=== PATIENT | female | born 1980 | race Hispanic/Latino ===

== ENCOUNTER 2021-06-30 10:05 | Emergency (ER) | payer MEDICAID ==
[2021-06-30 10:46] VITALS: BP 109/61
--- NOTE | 2021-06-30 12:15 | Event Note ---
ED Screening Note ED Screening Note: lower abd pain discomfort for a few days +vaginal discharge two weeks +clear fishy odor no v/d +dysuria +sexual active yes Concern for STD PMHx depression, anxiety no allergies to meds LNMP: two weeks ago This initial assessment/diagnostic orders/clinical plan/treatment(s) is/are subject to change based on patients health status, clinical progression and re- assessment by fellow clinical providers in the ED. Further treatment and workup at subsequent clinical providers discretion. Patient/guardian urged not to elope from the ED as their condition may be serious if not clinically assessed and managed. Initial orders include: ua, urine preg
[2021-06-30] MEDS ORDERED: ACETAMINOPHEN 325 MG TAB PO ONE (13:44)
[2021-06-30] MEDS ORDERED: LIDOCAINE-MPF (1%) 10 MG/1 ML VIAL 5 ML INFILTRATI ONE (13:44)
--- NOTE | 2021-06-30 14:01 | Emergency Department Report ---
ED Female HPI - General Chief complaint: Abdominal Pain Stated complaint: PELVIC PAIN Time Seen by Provider: 06/30/21 12:14 Source: patient Mode of arrival: Ambulatory Limitations: No Limitations - History of Present Illness Initial comments: 40-year-old female presents to the ER today with complaints of pelvic pain. Patient states that for the past 2 weeks she has been having this abnormal vaginal discharge which she describes as a yellow-green color with the vaginal odor and today she started having pain in mainly her right pelvic area. She re ports associated urinary frequency, and nausea but denies any other symptoms. She states that she has had the same sexual partner for the past 1 year, and has been having unprotected sexual intercourse. She states that she did have PID 1 year ago, his symptoms today feel somewhat similar. She is status post tubal ligation and status post cholecystectomy MD Complaint: pelvic pain, possible STD -: days(s) (2-3) - Related Data Previous Rx's Medication Instructions Recorded Last Taken Type Doxycycline Hyclate [Doxycycline 100 mg PO Q12HR #14 tab 06/30/21 Unknown Rx Hyclate TAB] metroNIDAZOLE [Flagyl] 500 mg PO Q12HR #14 tab 06/30/21 Unknown Rx Allergies Allergy/AdvReac Type Severity Reaction Status Date / Time No Known Allergies Allergy Unverified 06/30/21 10:41 ED Review of Systems ROS: Stated complaint: PELVIC PAIN Other details as noted in HPI Comment: All other systems reviewed and negative Constitutional: denies: chills, fever Eyes: denies: eye pain, eye discharge, vision change ENT: denies: ear pain, throat pain, dental pain, hearing loss, epistaxis, congestion Respiratory: denies: cough, shortness of breath, wheezing Gastrointestinal: abdominal pain. denies: nausea, vomiting, diarrhea, constipation, hematemesis, melena, hematochezia Genitourinary: denies: urgency, dysuria, frequency, hematuria, discharge, abnormal menses, dyspareunia Musculoskeletal: denies: back pain, joint swelling, arthralgia Skin: denies: rash, lesions, change in color, change in hair/nails, pruritus Neurological: denies: headache, weakness, numbness, paresthesias, confusion, abnormal gait, vertigo Psychiatric: denies: anxiety, depression, auditory hallucinations, visual hallucinations, homicidal thoughts, suicidal thoughts Hematological/Lymphatic: denies: easy bleeding, easy bruising, swollen glands ED Past Medical Hx - Past Medical History Hx Psychiatric Treatment: Yes (AXNIETY /DEPRESSION) Additional medical history: PID - Surgical History Hx Cholecystectomy: Yes Additional Surgical History: TUBES TIED - Medications Home Medications: Home Medications Medication Instructions Recorded Confirmed Last Taken Type Doxycycline Hyclate [Doxycycline 100 mg PO Q12HR #14 tab 06/30/21 Unknown Rx Hyclate TAB] metroNIDAZOLE [Flagyl] 500 mg PO Q12HR #14 tab 06/30/21 Unknown Rx ED Physical Exam - General Limitations: No Limitations General appearance: alert, in no apparent distress - Head Head exam: Present: atraumatic, normocephalic, normal inspection - Eye Eye exam: Present: normal appearance, PERRL, EOMI Pupils: Present: normal accommodation - Neck Neck exam: Present: normal inspection, full ROM - Respiratory Respiratory exam: Present: normal lung sounds bilaterally. Absent: respiratory distress, wheezes, rales, rhonchi - Cardiovascular Cardiovascular Exam: Present: regular rate, normal rhythm, normal heart sounds - GI/Abdominal GI/Abdominal exam: Present: soft. Absent: distended, tenderness, guarding, rebound, rigid - External exam: Present: other (Engraver Block present; erythematous maculopapular well-demarcated rash rash noted around the external vagina and in bilateral groin area concerning for candidiasis). Absent: swelling, lesions, lacerations, ecchymosis Speculum exam: Present: vaginal discharge (Small amount of mucousy clear white discharge). Absent: cervical discharge, vaginal bleeding, tissue, laceration Bi-manual exam: Present: cervical motion tendernes (Mild), adnexal tenderness (Mild right). Absent: adnexal mass, uterine enlargement, uterine tenderness - Back Exam Back exam: Present: normal inspection - Neurological Exam Neurological exam: Present: alert, oriented X3, CN II-XII intact, normal gait - Psychiatric Psychiatric exam: Present: normal affect, normal mood - Skin Skin exam: Present: intact ED Course Vital Signs 06/30/21 10:43 Temperature 98.4 F Pulse Rate 91 H Respiratory 20 Rate Blood Pressure 109/61 [Right] O2 Sat by Pulse 100 Oximetry ED Medical Decision Making - Medical Decision Making UA negative UTI, HCG negative, wet prep + Trichomonas She was given IM rocephin for possible gonorrhea. Discussed lab results with patient. She is currently resting comfortable and not in any distress. She is not toxic or ill appearing. She is mentally stable and neurologically intact with normal gait. She has soft non tender abd and pelvic exam shows mild right adnexal ttp with mild CMT but otherwise unremarkable. Her history, exam, diagnostic testing and current condition do not suggest acute appendicitis, acute cholecystitis, severe diverticulitis, severe PID, ovarian torsion, or tubo-ovarian abscess, sepsis or other significant pathology to warrant further testing, continued ED treatment, admission or surgical evaluation at this point. Discussed all lab results with patient. She will be discharged home with a prescription for doxycycline to cover for possible chlamydia and Flagyl to treat her trichomonas. Informed her that her partner should also get tested and treated. Patient expressed understanding for instructions and agree with plan. Patient was stable at time of discharge. Critical care attestation.: If time is entered above; I have spent that time in minutes in the direct care of this critically ill patient, excluding procedure time. ED Disposition Clinical Impression: Trichomonas vaginitis, Pelvic pain Disposition: HOME / SELF CARE / HOMELESS Is pt being admited?: No Does the pt Need Aspirin: No Condition: Stable Instructions: Pelvic Pain, Female, [id number], Trichomoniasis, Abdominal Pain (ED) Additional Instructions: I recommend that you take the Flagyl and the doxycycline as prescribed until completion. It is important that you avoid sexual intercourse for about 7 days. Your partner should also get tested and treated. Do not drink any alcohol as taking the antibiotics. Take both antibiotics with food as they can cause some stomach upset. Take the Tylenol and ibuprofen as needed to help with any pain. Return to the ER if you symptoms worsens or changes in any way. Prescriptions: Doxycycline Hyclate [Doxycycline Hyclate TAB] 100 mg PO Q12HR #14 tab metroNIDAZOLE [Flagyl] 500 mg PO Q12HR #14 tab Referrals: PRIMARY CARE, [Primary Care Provider] - 3-5 Days Time of Disposition: 15:18
[2021-06-30 15:23] LABS: Bilirubin,Urine NEG (Negative); Blood,Urine NEG (Negative); Color,Urine Yellow (Yellow); Mucus,Urine FEW /HPF; Protein,Urine <15 mg/dL mg/dL (Negative); Urobilinogen,Urine < 2.0 mg/dL (<2.0)
[2021-06-30 15:24] LABS: HCG Qualitative,Urine Negative (Negative)
== END 2021-06-30 16:03 | disposition home or self-care (01) ==
LOC: ED 10:05
DX: A59.01 Trichomonal vulvovaginitis (principal); R10.9 Unspecified abdominal pain; F41.8 Other specified anxiety disorders; F32.9 Major depressive disorder, single episode, unspecified; N73.9 Female pelvic inflammatory disease, unspecified; Z98.890 Other specified postprocedural states
CPT/HCPCS: 81001; 81025; 87210; 87591; 96372; 99284; J0696

== ENCOUNTER 2021-07-05 09:33 | Emergency (ER) | payer MEDICAID ==
[2021-07-05 10:32] LABS: Bilirubin,Urine NEG (Negative); Blood,Urine NEG (Negative); Color,Urine Yellow (Yellow); Mucus,Urine 2+ /HPF; Protein,Urine <15 mg/dL mg/dL (Negative); Urobilinogen,Urine < 2.0 mg/dL (<2.0)
[2021-07-05 11:11] LABS: Basophils % (Auto) 0.3 % (0.0-1.8); Hematocrit 38.3 % (30.3-42.9); Hemoglobin 12.7 gm/dl (10.1-14.3); Lymphocytes # (Auto) 1.6 K/mm3 (1.2-5.4); Lymphocytes % (Auto) 13.2 % (13.4-35.0); Mean Corpuscular HGB Conc 33 % (30-34); Mean Corpuscular Volume 91 fl (79-97); Monocytes # (Auto) 0.9 K/mm3 (0.0-0.8); Monocytes % (Auto) 7.4 % (0.0-7.3); Platelet Count 269 K/mm3 (140-440); Red Blood Count 4.21 M/mm3 (3.65-5.03); Red Cell Distribution Width 14.1 % (13.2-15.2)
--- NOTE | 2021-07-05 11:26 | Event Note ---
ED Screening Note ED Screening Note: right lower abd pain that began 2 days ago +n/v no diarrhea This initial assessment/diagnostic orders/clinical plan/treatment(s) is/are subject to change based on patients health status, clinical progression and re- assessment by fellow clinical providers in the ED. Further treatment and workup at subsequent clinical providers discretion. Patient/guardian urged not to elope from the ED as their condition may be serious if not clinically assessed and managed. Initial orders include: CT
[2021-07-05 11:29] LABS: HCG Qualitative,Urine Negative (Negative)
[2021-07-05 11:37] LABS: Alanine Aminotransferase 19 units/L (7-56); Blood Urea Nitrogen 9 mg/dL (7-17); Calcium 9.5 mg/dL (8.4-10.2); Hemolysis Index 0
[2021-07-05 11:57] LABS: BUN/Creatinine Ratio 18
--- NOTE | 2021-07-05 11:59 | Emergency Department Report ---
ED Abdominal Pain HPI - General Chief Complaint: Abdominal Pain Stated Complaint: R SIDE PAIN/VOMITING Time Seen by Provider: 07/05/21 11:24 Source: patient Mode of arrival: Ambulatory Limitations: No Limitations - History of Present Illness Initial Comments: 40-year-old female with a past medical history of PID presents to the ER today with complaints of right lower quadrant abdominal pain. Patient was seen here about 5 days ago with complaints of pain mainly in her right pelvic with associated vaginal discharge. Patient was seen here and treated for possible STIs. Patient returns today stating that the pain is now more in the right lower abdomen and she noticed that 2 days ago. She states that she is not having pain when she walks, as well as nausea and vomiting and decreased appetite and chills. She states that she has been taking the antibiotic that was prescribed to her 5 days ago. She denies any worsening vaginal discharge or abnormal vaginal bleeding. She denies any fever at home. She denies any bowel changes. She is status post cholecystectomy and status post tubal ligation. MD Complaint: abdominal pain -: Gradual, days(s) (5 days ago ) - Related Data Previous Rx's Medication Instructions Recorded Last Taken Type Ciprofloxacin HCl [Ciprofloxacin 500 mg PO BID 7 Days #28 tablet 07/06/21 Unknown Rx TAB] Doxycycline Hyclate [Doxycycline 100 mg PO Q12HR #14 tab 07/06/21 Unknown Rx Hyclate TAB] HYDROcodone/APAP 7.5-325 [[place] 1 each PO Q8HR PRN #12 tablet 07/06/21 Unknown Rx 7.5/325] Promethazine [Phenergan] 25 mg PO Q8HR PRN #14 tab 07/06/21 Unknown Rx metroNIDAZOLE [Flagyl TAB] 500 mg PO Q12HR #14 tab 07/06/21 Unknown Rx Allergies Allergy/AdvReac Type Severity Reaction Status Date / Time No Known Allergies Allergy Verified 07/05/21 09:38 ED Review of Systems ROS: Stated complaint: R SIDE PAIN/VOMITING Other details as noted in HPI Comment: All other systems reviewed and negative Constitutional: denies: chills, fever Eyes: denies: eye pain, eye discharge, vision change ENT: denies: ear pain, throat pain Respiratory: denies: cough, shortness of breath, SOB with exertion, SOB at rest, wheezing Cardiovascular: denies: chest pain, palpitations, dyspnea on exertion, edema, syncope, paroxysmal nocturnal dyspnea Endocrine: no symptoms reported Gastrointestinal: abdominal pain, nausea, vomiting. denies: diarrhea, constipation, hematemesis, melena, hematochezia Genitourinary: denies: urgency, dysuria, frequency, hematuria, abnormal menses, dyspareunia Musculoskeletal: denies: back pain, joint swelling, arthralgia, myalgia Skin: denies: rash, lesions, change in color, change in hair/nails, pruritus Neurological: denies: headache, weakness, paresthesias, confusion, abnormal gait, vertigo Psychiatric: denies: anxiety, depression, auditory hallucinations, visual hallucinations, homicidal thoughts, suicidal thoughts Hematological/Lymphatic: denies: easy bleeding, easy bruising, swollen glands ED Past Medical Hx - Past Medical History Hx Psychiatric Treatment: Yes (AXNIETY /DEPRESSION) Additional medical history: PID - Surgical History Hx Cholecystectomy: Yes Additional Surgical History: TUBES TIED - Medications Home Medications: Home Medications Medication Instructions Recorded Confirmed Last Taken Type Ciprofloxacin HCl [Ciprofloxacin 500 mg PO BID 7 Days #28 tablet 07/06/21 Unknown Rx TAB] Doxycycline Hyclate [Doxycycline 100 mg PO Q12HR #14 tab 07/06/21 Unknown Rx Hyclate TAB] HYDROcodone/APAP 7.5-325 [[place] 1 each PO Q8HR PRN #12 tablet 07/06/21 Unknown Rx 7.5/325] Promethazine [Phenergan] 25 mg PO Q8HR PRN #14 tab 07/06/21 Unknown Rx metroNIDAZOLE [Flagyl TAB] 500 mg PO Q12HR #14 tab 07/06/21 Unknown Rx ED Physical Exam - General Limitations: No Limitations General appearance: alert, in no apparent distress - Head Head exam: Present: atraumatic, normocephalic, normal inspection - Eye Eye exam: Present: normal appearance, PERRL, EOMI Pupils: Present: normal accommodation - Neck Neck exam: Present: normal inspection, full ROM - Respiratory Respiratory exam: Present: normal lung sounds bilaterally. Absent: respiratory distress, wheezes, rales, rhonchi, stridor - Cardiovascular Cardiovascular Exam: Present: regular rate, normal rhythm, normal heart sounds - GI/Abdominal GI/Abdominal exam: Present: soft, tenderness (moderate RLQ ttp with mild guarding ), guarding. Absent: distended, rebound, rigid - Neurological Exam Neurological exam: Present: alert, oriented X3, CN II-XII intact, normal gait - Psychiatric Psychiatric exam: Present: normal affect, normal mood ED Course Vital Signs 07/05/21 07/05/21 09:40 15:28 Temperature 98.0 F 98.3 F Pulse Rate 104 H 88 Respiratory 20 16 Rate Blood Pressure 104/54 Blood Pressure 138/84 [Left] O2 Sat by Pulse 100 98 Oximetry ED Medical Decision Making - Lab Data Result diagrams: 07/05/21 10:54 07/05/21 10:54 - Radiology Data Radiology results: report reviewed Patient: JACK MARIANO MR#: [id number] : 1980 Acct:[id number] Age/Sex: 40 / F ADM Date: 07/05/21 Loc: ED Attending Dr: Ordering Physician: CHELSEY STARKS Date of Service: 07/05/21 Procedure(s): CT abdomen pelvis w con Accession Number(s): [id number] cc: CHELSEY STARKS CT ABDOMEN AND PELVIS WITH CONTRAST INDICATION / CLINICAL INFORMATION: right lower abd pain, n/v OMNI 300 100 ML. TECHNIQUE: Axial CT images were obtained through the abdomen and pelvis after 100 cc Omnipaque [address] scans at this location are performed using CT dose reduction for ALARA by means of automated exposure control. COMPARISON: None available. FINDINGS: LOWER CHEST: There is some peripheral interstitial disease/groundglass density in the right lung base. Left lung base is clear. LIVER: No significant abnormality. GALLBLADDER: Cholecystectomy. BILE DUCTS: No significant abnormality. PANCREAS: No significant abnormality. SPLEEN: No significant abnormality. ADRENALS: No significant abnormality. RIGHT KIDNEY / URETER: No significant abnormality. LEFT KIDNEY / URETER: No significant abnormality. STOMACH / SMALL BOWEL: No significant abnormality. COLON: There is some stranding in the fat adjacent to the distal sigmoid colon. APPENDIX: No significant abnormality. PERITONEUM: There is a small amount of free fluid in the dependent pelvis. No free air. No fluid collection. LYMPH NODES: No significant adenopathy. AORTA / ARTERIES: No significant abnormality. IVC / VEINS: No significant abnormality. URINARY BLADDER: No significant abnormality. REPRODUCTIVE ORGANS: There are bilateral adnexal cyst measuring above water density. This measures 3.4 on the right and 3.2 on the left. There is some mild stranding in the fat around the right adnexa slightly superior to the uterus. This is adjacent to distal sigmoid colon. ADDITIONAL FINDINGS: None. SKELETAL SYSTEM: No acute abnormality. IMPRESSION: 1. There is no inflammatory process in the pelvis which involves the right adnexa and the distal sigmoid colon. The differential diagnosis includes pelvic inflammatory disease as well as sigmoid di verticulitis. There is no abscess or free air. 2. There are bilateral adnexal cysts which are likely ovarian cysts. There is a small amount of free fluid in the dependent pelvis Signer Name: Heath Rosales MD Signed: 07/05/2021 2:35 PM Workstation Name: [id number] Transcribed By: Dictated By: Heath Rosales MD Electronically Authenticated By: Heath Rosales MD Signed Date/Time: 07/05/21 1435 DD/ 11 TD/TT: - Medical Decision Making The patient's care has been transferred to and accepted by[Niru Campbell]. We discussed: The patient's chief complaints; labs and imaging that have been completed and those that are still pending; any treatment provided and the patient's response to treatment; any significant change in condition; the treatment plan prior to the transfer of care. The accepting provider will follow up on all pending labs and imaging and make any necessary changes to the current impression and/or treatment plan. The accepting physician/midlevel is now responsible for the patient's care and final disposition. Critical care attestation.: If time is entered above; I have spent that time in minutes in the direct care of this critically ill patient, excluding procedure time. ED Disposition Clinical Impression: PID (acute pelvic inflammatory disease) Disposition: 07 LEFT AWOL/ELOPED Is pt being admited?: No Does the pt Need Aspirin: No Condition: Stable Instructions: Abdominal Pain (ED) Referrals: PRIMARY CARE, [Primary Care Provider] - 3-5 Days
[2021-07-05] MEDS ORDERED: SODIUM CHLORIDE 0.9% 1000 ML 1,000 ML IV ONE (12:03)
[2021-07-05] MEDS ORDERED: ONDANSETRON 4 MG/2 ML INJ IV ONE ×2 (12:03→16:00)
[2021-07-05] MEDS ORDERED: MORPHINE 4 MG/1 ML INJ IV ONE ×2 (12:03→16:00)
--- NOTE | 2021-07-05 14:40 | Cat Scan Report ---
CT ABDOMEN AND PELVIS WITH CONTRAST INDICATION / CLINICAL INFORMATION: right lower abd pain, n/v OMNI 300 100 ML. TECHNIQUE: Axial CT images were obtained through the abdomen and pelvis after 100 cc Omnipaque [address] scans at this location are performed using CT dose reduction for ALARA by means of automated exposure control. COMPARISON: None available. FINDINGS: LOWER CHEST: There is some peripheral interstitial disease/groundglass density in the right lung base . Left lung base is clear. LIVER: No significant abnormality. GALLBLADDER: Cholecystectomy. BILE DUCTS: No significant abnormality. PANCREAS: No significant abnormality. SPLEEN: No significant abnormality. ADRENALS: No significant abnormality. RIGHT KIDNEY / URETER: No significant abnormality. LEFT KIDNEY / URETER: No significant abnormality. STOMACH / SMALL BOWEL: No significant abnormality. COLON: There is some stranding in the fat adjacent to the distal sigmoid colon. APPENDIX: No significant abnormality. PERITONEUM: There is a small amount of free fluid in the dependent pelvis. No free air. No fluid yolande ection. LYMPH NODES: No significant adenopathy. AORTA / ARTERIES: No significant abnormality. IVC / VEINS: No significant abnormality. URINARY BLADDER: No significant abnormality. REPRODUCTIVE ORGANS: There are bilateral adnexal cyst measuring above water density. This measures 3. 4 on the right and 3.2 on the left. There is some mild stranding in the fat around the right adnexa s lightly superior to the uterus. This is adjacent to distal sigmoid colon. ADDITIONAL FINDINGS: None. SKELETAL SYSTEM: No acute abnormality. IMPRESSION: 1. There is no inflammatory process in the pelvis which involves the right adnexa and the distal sigm oid colon. The differential diagnosis includes pelvic inflammatory disease as well as sigmoid diverti culitis. There is no abscess or free air. 2. There are bilateral adnexal cysts which are likely ovarian cysts. There is a small amount of free fluid in the dependent pelvis Signer Name: Heath Rosales MD Signed: 07/05/2021 2:35 PM Workstation Name: [id number]
[2021-07-05 15:29] VITALS: BP 138/84
[2021-07-05] MEDS ORDERED: PIPERACIL/TAZOBACTA 4.5/NS 100 4.5 GM/100 ML VIAL IV ONE (17:21)
--- NOTE | 2021-07-05 17:56 | Ultrasound Report ---
Note: Please see concurrent US PELVIC COMPLETE report for transvaginal ultrasound findings. Signer Name: Emmett Juarez MD Signed: 07/05/2021 5:51 PM Workstation Name: [id number]
--- NOTE | 2021-07-05 18:04 | Ultrasound Report ---
ULTRASOUND PELVIS INDICATION / CLINICAL INFORMATION: Right sided pain. TECHNIQUE: Transabdominal and Transvaginal. Duplex Color Doppler used: Yes. COMPARISON: Same-day CT examination. FINDINGS: UTERUS: Uterus measures 10.7 x 4.2 x 4.0 cm. The endometrial stripe contains complex free fluid, moses uring 0.5 cm. Endometrial thickness measures approximately 1 cm. No myometrial mass. RIGHT ADNEXA: 3.2 cm complex hypoechoic structure within the right ovary with lacelike internal echoe s, likely reflecting a hemorrhagic cyst. Normal ovarian Doppler flow. LEFT ADNEXA: 2.9 cm complex thick-walled hypoechoic structure with lacelike internal echoes, likely r eflecting hemorrhagic cyst. Normal ovarian Doppler flow. URINARY BLADDER: No significant abnormality. FREE FLUID: Minimal. No organized collection within the pelvis. ADDITIONAL FINDINGS: None. IMPRESSION: 1. Small volume complex free fluid in the endometrial cavity. This is nonspecific in a premenopausal patient, though may be physiologic. Recommend correlation to exclude infection. 2. Bilateral complex cystic masses in both ovaries, measuring 3.2 cm on the right and 2.9 cm on the l eft. Both structures demonstrate imaging characteristics most suggestive of hemorrhagic cysts. Recomm end follow-up pelvic ultrasound in 6 weeks to confirm resolution. 3. Nonspecific trace free fluid in the cul-de-sac. Signer Name: Emmett Juarez MD Signed: 07/05/2021 5:59 PM Workstation Name: [id number]
== END 2021-07-05 19:00 | disposition left against medical advice (07) ==
LOC: ED 09:33
DX: N73.9 Female pelvic inflammatory disease, unspecified (principal); F32.9 Major depressive disorder, single episode, unspecified; Z98.890 Other specified postprocedural states
CPT/HCPCS: 36415; 74177; 76830; 76856; 80053; 81001; 81025; 83690; 85025; 96361; 96374; 96375; 96376; 99284; J2270; J2405; J7030; Q9967

== ENCOUNTER 2021-07-06 09:44 | Emergency (ER) | payer MEDICAID ==
[2021-07-06 10:59] VITALS: BP 103/67
--- NOTE | 2021-07-06 13:21 | Emergency Department Report ---
ED General Adult HPI - General Chief complaint: Abdominal Pain Stated complaint: SEVERE PAIN NAUSEA FATIGUE Time Seen by Provider: 07/06/21 13:16 Source: patient Mode of arrival: Ambulatory Limitations: No Limitations - History of Present Illness Initial comments: Patient is a 40-year-old female presents the emergency room stating that she would like to go over her results. She is was evaluated in the emergency department yesterday and she states that she left prior to receiving her results. Patient has been having some right lower quadrant tenderness and nausea. She states that the vomiting has improved. She denies any fever, hematochezia, melena, hematemesis, dysuria. Past medical history of anxiety, depression, PID. No allergies to medications. - Related Data Previous Rx's Medication Instructions Recorded Last Taken Type Ciprofloxacin HCl [Ciprofloxacin 500 mg PO BID 7 Days #28 tablet 07/06/21 Unknown Rx TAB] Doxycycline Hyclate [Doxycycline 100 mg PO Q12HR #14 tab 07/06/21 Unknown Rx Hyclate TAB] HYDROcodone/APAP 7.5-325 [Maben 1 each PO Q8HR PRN #12 tablet 07/06/21 Unknown Rx 7.5/325] Promethazine [Phenergan] 25 mg PO Q8HR PRN #14 tab 07/06/21 Unknown Rx metroNIDAZOLE [Flagyl TAB] 500 mg PO Q12HR #14 tab 07/06/21 Unknown Rx Allergies Allergy/AdvReac Type Severity Reaction Status Date / Time No Known Allergies Allergy Verified 07/05/21 09:38 ED Review of Systems ROS: Stated complaint: SEVERE PAIN NAUSEA FATIGUE Other details as noted in HPI Comment: All other systems reviewed and negative ED Past Medical Hx - Past Medical History Previous Medical History?: Yes Hx Psychiatric Treatment: Yes (AXNIETY /DEPRESSION) Additional medical history: PID - Surgical History Past Surgical History?: Yes Hx Cholecystectomy: Yes Additional Surgical History: TUBES TIED, gallbladder removed - Social History Smoking Status: Never Smoker - Medications Home Medications: Home Medications Medication Instructions Recorded Confirmed Last Taken Type Ciprofloxacin HCl [Ciprofloxacin 500 mg PO BID 7 Days #28 tablet 07/06/21 Unknown Rx TAB] Doxycycline Hyclate [Doxycycline 100 mg PO Q12HR #14 tab 07/06/21 Unknown Rx Hyclate TAB] HYDROcodone/APAP 7.5-325 [Maben 1 each PO Q8HR PRN #12 tablet 07/06/21 Unknown Rx 7.5/325] Promethazine [Phenergan] 25 mg PO Q8HR PRN #14 tab 07/06/21 Unknown Rx metroNIDAZOLE [Flagyl TAB] 500 mg PO Q12HR #14 tab 07/06/21 Unknown Rx ED Physical Exam - General Limitations: No Limitations General appearance: alert, in no apparent distress - Head Head exam: Present: atraumatic, normocephalic - Eye Eye exam: Present: normal appearance - ENT ENT exam: Present: mucous membranes moist - Respiratory Respiratory exam: Present: normal lung sounds bilaterally. Absent: respiratory distress, wheezes, rales, rhonchi, stridor, chest wall tenderness, accessory muscle use, decreased breath sounds, prolonged expiratory - Cardiovascular Cardiovascular Exam: Present: regular rate, normal rhythm, normal heart sounds. Absent: systolic murmur, diastolic murmur, rubs, gallop - GI/Abdominal GI/Abdominal exam: Present: soft, normal bowel sounds. Absent: distended, tenderness, guarding, rebound, rigid - Neurological Exam Neurological exam: Present: alert, oriented X3 - Psychiatric Psychiatric exam: Present: normal affect, normal mood - Skin Skin exam: Present: warm, dry, intact ED Course Vital Signs 07/06/21 10:58 Temperature 97.6 F Pulse Rate 97 H Respiratory 20 Rate Blood Pressure 103/67 O2 Sat by Pulse 100 Oximetry ED Medical Decision Making - Radiology Data Radiology results: report reviewed Ordering Physician: CHELSEY STARKS Date of Service: 07/05/21 Procedure(s): CT abdomen pelvis w con Accession Number(s): [id number] cc: CHELSEY STARKS ADDENDUM Correction: IMPRESSION: 1. There is an inflammatory process in the pelvis which involves the right adnexa and the distal sigmoid colon. The differential diagnosis includes pelvic inflammatory disease as well as sigmoid diverticulitis. There is no abscess or free air. Signer Name: Heath Rosales MD Signed: 07/05/2021 2:58 PM Workstation Name: [id number] Addendum Transcribed By: Addendum Dictated By: Heath Rosales MD Addendum Electronically Authenticated By: Hetah Rosales MD Addendum Signed Date/Time: 07/05/21 1458 DD/ TD/TT: / CT ABDOMEN AND PELVIS WITH CONTRAST INDICATION / CLINICAL INFORMATION: right lower abd pain, n/v OMNI 300 100 ML. TECHNIQUE: Axial CT images were obtained through the abdomen and pelvis after 100 cc Omnipaque [address] scans at this location are performed using CT dose reduction for ALARA by means of automated exposure control. COMPARISON: None available. FINDINGS: LOWER CHEST: There is some peripheral interstitial disease/groundglass density in the right lung base. Left lung base is clear. LIVER: No significant abnormality. GALLBLADDER: Cholecystectomy. BILE DUCTS: No significant abnormality. PANCREAS: No significant abnormality. SPLEEN: No significant abnormality. ADRENALS: No significant abnormality. RIGHT KIDNEY / URETER: No significant abnormality. LEFT KIDNEY / URETER: No significant abnormality. STOMACH / SMALL BOWEL: No significant abnormality. COLON: There is some stranding in the fat adjacent to the distal sigmoid colon. APPENDIX: No significant abnormality. PERITONEUM: There is a small amount of free fluid in the dependent pelvis. No free air. No fluid collection. LYMPH NODES: No significant adenopathy. AORTA / ARTERIES: No significant abnormality. IVC / VEINS: No significant abnormality. URINARY BLADDER: No significant abnormality. REPRODUCTIVE ORGANS: There are bilateral adnexal cyst measuring above water density. This measures 3.4 on the right and 3.2 on the left. There is some mild stranding in the fat around the right adnexa slightly superior to the uterus. This is adjacent to distal sigmoid colon. ADDITIONAL FINDINGS: None. SKELETAL SYSTEM: No acute abnormality. IMPRESSION: 1. There is no inflammatory process in the pelvis which involves the right adnexa and the distal sigmoid colon. The differential diagnosis includes pelvic inflammatory disease as well as sigmoid di verticulitis. There is no abscess or free air. 2. There are bilateral adnexal cysts which are likely ovarian cysts. There is a small amount of free fluid in the dependent pelvis Signer Name: Heath Rosales MD Signed: 07/05/2021 2:35 PM Workstation Name: [id number] Transcribed By: Dictated By: Heath Rosales MD Electronically Au -- thenticated By: Heath Rosales MD Signed Date/Time: 07/05/21 1435 DD/ 1412 TD/TT: [Addendum Report Added by HEATH ROSALES at 2021-07-05 15:05:11] [facility] [address] [place] [address] Cat Scan Report Signed Patient: JACK MARIANO MR#: [id number] : 1980 Acct:[id number] Age/Sex: 40 / F ADM Date: 07/05/21 Loc: ED Attending Dr: Ordering Physician: CHELSEY STARKS Date of Service: 07/05/21 Procedure(s): CT abdomen pelvis w con Accession Number(s): [id number] cc: CHELSEY STARKS CT ABDOMEN AND PELVIS WITH CONTRAST INDICATION / CLINICAL INFORMATION: right lower abd pain, n/v OMNI 300 100 ML. TECHNIQUE: Axial CT images were obtained through the abdomen and pelvis after 100 cc Omnipaque [address] scans at this location are performed using CT dose reduction for ALARA by means of automated exposure control. COMPARISON: None available. FINDINGS: LOWER CHEST: There is some peripheral interstitial disease/groundglass density in the right lung base. Left lung base is clear. LIVER: No significant abnormality. GALLBLADDER: Cholecystectomy. BILE DUCTS: No significant abnormality. PANCREAS: No significant abnormality. SPLEEN: No significant abnormality. ADRENALS: No significant abnormality. RIGHT KIDNEY / URETER: No significant abnormality. LEFT KIDNEY / URETER: No significant abnormality. STOMACH / SMALL BOWEL: No significant abnormality. COLON: There is some stranding in the fat adjacent to the distal sigmoid colon. APPENDIX: No significant abnormality. PERITONEUM: There is a small amount of free fluid in the dependent pelvis. No free air. No fluid collection. LYMPH NODES: No significant adenopathy. AORTA / ARTERIES: No significant abnormality. IVC / VEINS: No significant abnormality. URINARY BLADDER: No significant abnormality. REPRODUCTIVE ORGANS: There are bilateral adnexal cyst measuring above water density. This measures 3.4 on the right and 3.2 on the left. There is some mild stranding in the fat around the right adnexa slightly superior to the uterus. This is adjacent to distal sigmoid colon. ADDITIONAL FINDINGS: None. SKELETAL SYSTEM: No acute abnormality. IMPRESSION: 1. There is no inflammatory process in the pelvis which involves the right adnexa and the distal sigmoid colon. The differential diagnosis includes pelvic inflammatory disease as well as sigmoid di verticulitis. There is no abscess or free air. 2. There are bilateral adnexal cysts which are likely ovarian cysts. There is a small amount of free fluid in the dependent pelvis Signer Name: Heath Rosales MD Signed: 07/05/2021 2:35 PM Workstation Name: [id number] Transcribed By: WENDY Dictated By: Heath Rosales MD Electronically Authenticated By: Heath Rosales MD Signed Date/Time: 07/05/21 1435 DD/ 1412 TD/TT: Ordering Physician: JULI TROY Date of Service: 07/05/21 Procedure(s): US pelvic complete Accession Number(s): [id number] cc: JULI TROY ULTRASOUND PELVIS INDICATION / CLINICAL INFORMATION: Right sided pain. TECHNIQUE: Transabdominal and Transvaginal. Duplex Color Doppler used: Yes. COMPARISON: Same-day CT examination. FINDINGS: UTERUS: Uterus measures 10.7 x 4.2 x 4.0 cm. The endometrial stripe contains complex free fluid, measuring 0.5 cm. Endometrial thickness measures approximately 1 cm. No myometrial mass. RIGHT ADNEXA: 3.2 cm complex hypoechoic structure within the right ovary with lacelike internal echoes, likely reflecting a hemorrhagic cyst. Normal ovarian Doppler flow. LEFT ADNEXA: 2.9 cm complex thick-walled hypoechoic structure with lacelike internal echoes, likely reflecting hemorrhagic cyst. Normal ovarian Doppler flow. URINARY BLADDER: No significant abnormality. FREE FLUID: Minimal. No organized collection within the pelvis. ADDITIONAL FINDINGS: None. IMPRESSION: 1. Small volume complex free fluid in the endometrial cavity. This is nonspecific in a premenopausal patient, though may be physiologic. Recommend correlation to exclude infection. 2. Bilateral complex cystic masses in both ovaries, measuring 3.2 cm on the right and 2.9 cm on the left. Both structures demonstrate imaging characteristics most suggestive of hemorrhagic cysts. Recommend follow-up pelvic ultrasound in 6 weeks to confirm resolution. 3. Nonspecific trace free fluid in the cul-de-sac. Signer Name: Adalberto Juarez MD Signed: 07/05/2021 5:59 PM Workstation Name: [id number] Transcribed By: JOHANA Dictated By: ADALBERTO JUAREZ MD Electronically Authenticated By: ADALBERTO JUAREZ MD Signed Date/Time: 07/05/211758 DD/ 49 TD/TT: - Medical Decision Making Patient is a 40-year-old female presents the emergency room stating that she would like to go over her results. She is was evaluated in the emergency department yesterday and she states that she left prior to receiving her results. Patient has been having some right lower quadrant tenderness and nausea. She states that the vomiting has improved. She denies any fever, hematochezia, melena, hematemesis, dysuria. Past medical history of anxiety, depression, PID. No allergies to medications. Vitals are normal. On exam p ed has no abdominal tenderness on exam, no guarding, no rebound, no rigidity, no peritoneal signs. CT abdomen pelvis: 1. There is no inflammatory process in the pelvis which involves the right adnexa and the distal sigmoid colon. The differential diagnosis includes pelvic inflammatory disease as well as sigmoid diverticulitis. There is no abscess or free air. 2. There are bilateral adnexal cysts which are likely ovarian cysts. There is a small amount of free fluid in the dependent pelvis . pelvic US: 1. Small volume complex free fluid in the endometrial cavity. This is nonspecific in a premenopausal patient, though may be physiologic. Recommend correlation to exclude infection. 2. Bilateral complex cystic masses in both ovaries, measuring 3.2 cm on the right and 2.9 cm on theleft. Both structures demonstrate imaging characteristics most suggestive of hemorrhagic cysts. Recommend follow-up pelvic ultrasound in 6 weeks to confirm resolution. 3. Nonspecific trace free fluid in the cul-de-sac. Reviewed patient's imaging studies with patient. Discussed the importance of outpatient follow-up. Given that she likely has PID, will extend her antibiotic regimen for 14 days, she was already given a 1 week supply, will add 1 week. Due to the possible diverticulitis, will also cover with ciprofloxacin. Patient is able to tolerate p.o. intake, she is not febrile tachycardic, she is appropriate for outpatient management at this time. Patient given prescription for medications. Advised patient Please complete the medications you were given during your last emergency room visit. I am increasing your duration of medicine for 2 weeks instead of just 1 week. Follow-up with a primary care doctor. Follow-up with REHABILITATION AIDE/SCHEDULER. Return to emergency room for any new or worsening symptoms. Critical care attestation.: If time is entered above; I have spent that time in minutes in the direct care of this critically ill patient, excluding procedure time. ED Disposition Clinical Impression: PID (acute pelvic inflammatory disease), Diverticulitis Ovarian cyst Qualifiers: Laterality: bilateral Qualified Code(s): N83.201 - Unspecified ovarian cyst, right side Disposition: 01 HOME / SELF CARE / HOMELESS Is pt being admited?: No Does the pt Need Aspirin: No Condition: Stable Instructions: Diverticulitis, [id number], Ovarian Cyst, [id number], Pelvic Inflammatory Disease, [id number], Abdominal Pain (ED) Additional Instructions: Please complete the medications you were given during your last emergency room visit. I am increasing your duration of medicine for 2 weeks instead of just 1 week. Follow-up with a primary care doctor. Follow-up with REHABILITATION AIDE/SCHEDULER. Return to emergency room for any new or worsening symptoms. Prescriptions: Ciprofloxacin HCl [Ciprofloxacin TAB] 500 mg PO BID 7 Days #28 tablet Doxycycline Hyclate [Doxycycline Hyclate TAB] 100 mg PO Q12HR #14 tab metroNIDAZOLE [Flagyl TAB] 500 mg PO Q12HR #14 tab HYDROcodone/APAP 7.5-325 [Maben 7.5/325] 1 each PO Q8HR PRN #12 tablet PRN Reason: Pain Promethazine [Phenergan] 25 mg PO Q8HR PRN #14 tab PRN Reason: Nausea Referrals: [facility] [Provider Group] - 2-3 Days SHARI FIGUEREDO MD [Staff Physician] - 2-3 Days MACARENA DIETRICH MD [Staff Physician] - 2-3 Days GEENA CABRERA MD [Staff Physician] - 2-3 Days Time of Disposition: 13:19 Print Language: MOHAWK
== END 2021-07-06 13:21 | disposition home or self-care (01) ==
LOC: ED 09:44
DX: N73.9 Female pelvic inflammatory disease, unspecified (principal); K57.92 Diverticulitis of intestine, part unspecified, without perforation or abscess without bleeding; N83.201 Unspecified ovarian cyst, right side; N83.202 Unspecified ovarian cyst, left side; F41.8 Other specified anxiety disorders; F32.9 Major depressive disorder, single episode, unspecified; Z98.890 Other specified postprocedural states
CPT/HCPCS: 99281